=== PATIENT | male | born 1945 | race Caucasian/White ===

== ENCOUNTER 2025-06-21 09:22 | Observation (INO) | payer OTHER, SELFPAY ==
[2025-06-21] VITALS (19 sets, daily range): BP systolic 157–195; BP diastolic 70–97; PULSE 71–85; RESP 16–18; TEMP 36–36.6; O2SAT 95–99
--- NOTE | 2025-06-21 10:00 | DI.MRI_ITS ---
Exam(s) MR LUMBAR SPINE WO EXAM: MR LUMBAR SPINE WO CLINICAL HISTORY: Low back pain urinary frequency. TECHNIQUE: Multiplanar multisequence MRI of the Lumbar spine was performed. COMPARISON: CR ABD FLAT UPRIGHT PA CHEST from 07/13/2009 FINDINGS: Bones: The last intervertebral disc space is designated the L5/S1 level for the numbering purpose of this examination. Alignment: Unremarkable. There is a moderate compression of the superior endplate of T12 with slight retropulsion. This appears old. There is slight compression and discrete for fracture line seen in the superior endplate of L1 which is acute or subacute. No retropulsion. There is patchy marrow signal with significant fatty replacement of the bone marrow, particularly in the level of L5 and the pelvis. There is a 19 x 12 millimeter low signal lesion in the left ilium. No additional lesions are identified. Cord: The conus tip ends at the T12 level. It is of normal size and signal intensity. T12-L1: No focal disc herniation is present. No central spinal canal stenosis.No neural foraminal stenosis. L1-2: No focal disc herniation is present. No central spinal canal stenosis.No neural foraminal stenosis. L2-3:Small endplate osteophytes and disc bulging eccentric toward the right. Mild bilateral neural foraminal narrowing. No focal disc herniation is present. Mild central spinal canal stenosis. L3-4: Small endplate osteophytes and mild disc bulging. Facet degenerative changes and ligamentous hypertrophy combine to produce moderate central canal stenosis and mild left neural foraminal narrowing.No focal disc herniation is present. L4-5: Postsurgical changes of apparent disc fusion. No central spinal canal stenosis.No neural foraminal stenosis. L5-S1: Postsurgical changes with fusion across the disc. Small endplate osteophytes.. No central spinal canal stenosis.No neural foraminal stenosis. The visualized SI joints and sacrum are unremarkable. Soft tissues: The paraspinal soft tissues are unremarkable. IMPRESSION: Acute or subacute mild compression fracture of the superior endplate of L1. Old moderate compression fracture of T12. Mild central canal stenosis at L2-3. Moderate central canal stenosis at L3-4 secondary to combination of degenerative changes. Postsurgical changes at L4-5 and L5-S1. Low signal lesion in the left ilium correlation with clinical history recommended. Findings could represent metastatic disease. Findings called to Mahnaz Bansal of the emergency department. DATA REPOSITORY:
--- NOTE | 2025-06-21 10:05 | DI.MRI_ITS ---
Exam(s) MR THORACIC SPINE WO EXAM: MR THORACIC SPINE WO CLINICAL HISTORY: Low back pain urinary frequency abnormal x-ray. TECHNIQUE: Multiplanar multisequence MRI of the Thoracic spine was performed. COMPARISON: MR MR LUMBAR SPINE WO from 06/21/2025 FINDINGS: Bones: There is a moderate compression fracture of the superior endplate of T12 which appears old. There is mild retropulsion of the superior endplate but no significant central canal stenosis. There is acute or sub acute minimal compression of the L1 vertebral body. The remaining vertebral body heights are well maintained. Alignment is satisfactory. The marrow signal is mottled. No suspicious focal lesions. Cord: The thoracic cord is normal size and signal intensity. No cord edema, thickening or masses. There is slight dilatation of the central canal, less than 2 millimeters, at the level of T7-8 extending along a length of 17 millimeters. There is also slight dilatation of the central canal, [address], at the level of T12. Soft tissues: Normal. Discs: Endplate osteophytes. No disc bulging or focal disc herniation. IMPRESSION: Old moderate compression fracture of T12. Acute or subacute mild compression of L1 vertebral body. Slight dilatation of the central canal of the spinal cord at the T7-8 level and at the level of T12. The findings could be related to previous trauma. Findings were called to Dr. Lozano of the emergency department. DATA REPOSITORY:
--- NOTE | 2025-06-21 10:10 | W.ED.GENAD ---
Discharge Plan Disposition Patient Disposition: Admit to [facility] Discharge Details Clinical Impression: Compression fx, lumbar spine Primary Care Provider: [facility] ED Provider: Scot Lozano Home Meds and New Rx's Prescriptions: No Action amlodipine 2.5 MG tablet 2.5 mg PO DAILY finasteride 5 MG tablet 5 mg PO DAILY oxycodone-acetaminophen 1 TAB tablet 1 - 2 tab PO Q6H PRN PRNQty: 10 0RF lidocaine [Lidoderm] 5 % adhesive patch,medicated See Rx Instructions .ROUTE .COMPLEX Rx Instructions: leave on most painful area for up to 12 hrs HPI General Date/Time Provider Initiated Documentation: 06/21/25 09:48. HPI Narrative: MDM This is an uncomfortable appearing normothermic and not tachycardic 80-year-old male with acute low back pain and abnormal x-rays with urinary frequency concerning for the possibility of cord compression for which patient will undergo MRI. No pain out of proportion to suggest necrotizing soft tissue infection. Patient is not anticoagulated to suggest increased risk for spinal epidural hematoma. No fevers to suggest spinal epidural abscess and no history of IV drug use. Cauda equina certainly on the differential given urinary frequency though patient has no saddle anesthesia. Soft nontender abdomen so I am not suspicious for appendicitis nor diverticulitis. No chest pain to suggest ACS. No rash to back to suggest zoster. Will treat with morphine and reassess. Bilateral feet warm well-perfused so I am no concerned for critical limb ischemia as I do not feel the patient requires a CT angiogram of his abdomen with runoffs. Patient will likely require physical therapy evaluation with possibility of hospitalization. 11 AM CBC lacks anemia thrombocytopenia leukocytosis. 12:[address] scan showed acute or subacute mild lumbar compression fracture. Will obtain AP and lateral films. Radiology also advised lesion in the left ilium concerning for possibility of metastatic disease may the patient and his aware. 1:58 PM Chemistry showing normal renal function. Mild anion gap. Mild hypercalcemia. Mild hyperglycemia but normal bicarbonate. Physical therapy worked with the patient. He was having difficulty mobilizing. Given that he is requiring assistance with activities of daily living and has required multiple IV doses of narcotics will reach out to the hospitalist with request for hospitalization. 201 p.m. I was in touch with Dr. Jesus from the hospitalist team who graciously agreed to accept the patient for hospitalization. HPI This is a patient with a history of sciatic nerve issues and significant degenerative disk disease presenting with back pain. The patient experienced back pain after lifting a heavy object on the evening of 06/17/2025, which was exacerbated when he knelt down to push it over. He reports no recent falls or injuries. The pain is located in the center of his lower back. He reports no abdominal pain, nausea, or vomiting. He has experienced similar episodes in the past, but they usually resolve within a few days. He describes a sensation of his lower half being unable to support him at times, making it difficult for him to walk. He reports no numbness or tingling in his legs. He has not lost control of his bowels or bladder, but notes an increased need to urinate, even though he has not been drinking excessively. He reports no fever. He feels that his legs are functioning normally, but his lower back does not provide adequate support. He was seen at the [facility] where x-rays revealed an old compression fracture at T12 and a possible new one at L1, along with significant degenerative disk disease. He was prescribed oxycodone 25 mg every 8 hours and lidocaine patches, and was advised to use a walker. The ER suggested an MRI and recommended that he return if the pain worsened. However, his primary care physician is currently unavailable. His blood pressure is elevated due to the pain, in spite of being on antihypertensive medication. PAST SURGICAL HISTORY: The patient underwent surgery for sciatic nerve issues approximately 40 years ago, during which 75% of two disks were removed. Exam General: Well-appearing in no acute distress speaking in complete sentences. Head: Normocephalic, atraumatic. Eye: Extraocular eye movements intact. No conjunctival injection. No scleral icterus. Ear, nose, mouth, throat: Grossly normal inspection. Normal voice, handling secretions normally. Neck: Trachea midline. No midline cervical spinal tenderness. Cardiovascular: Well-perfused distal extremities. Regular rate and rhythm Respiratory: Nonlabored respiration. Clear lungs bilaterally Gastrointestinal: Nondistended abdomen. Soft nontender. Back: Midline lumbar spinal tenderness. No step-offs. No deformities. No thoracic tenderness. No rash to back. Well-healed midline lumbar incision. Musculoskeletal: No edema. Intact PT pulses bilaterally. Warm well-perfused feet. Moving all 4 extremities spontaneously. 5 out of 5 bilateral lower extremity strength on dorsi and plantarflexion. No clonus. Sensation intact in bilateral lower extremities. Skin: Normal for age and race, grossly normal temperature and turgor. No acute rash. Neurologic: Alert and appropriate, no apparent acute deficits. Psychiatric: Mood and manner are appropriate. Grooming and personal hygiene are appropriate. Related Data Home Medications ?Medication ?Instructions ?Recorded ?Confirmed oxycodone-acetaminophen 5 mg-325 1 - 2 tab PO Q6H PRN PRN #10 tabs 06/09/17 06/21/25 mg tablet amlodipine 2.5 mg tablet 2.5 mg PO DAILY 06/18/17 06/21/25 finasteride 5 mg tablet 5 mg PO DAILY 06/18/17 06/21/25 lidocaine 5 % topical patch See Rx Instructions topical 06/21/25 06/21/25 (Lidoderm) .COMPLEX Previous Rx's ?Medication ?Instructions ?Recorded oxycodone-acetaminophen 5 mg-325 1 - 2 tab PO Q6H PRN PRN #10 tabs 06/09/17 mg tablet Allergies Allergy/AdvReac Type Severity Reaction Status Date / Time bee venom protein (honey bee) Allergy Severe Anaphylaxsi Unverified 06/21/25 10:10 s General Stated Complaint: Nk/Back Pain SERAFIN: 3 Course Vital Signs Vital signs: Vital Signs Temperature 36.6 C 06/21/25 09:29 Pulse 85 06/21/25 09:29 Respiratory Rate 18 06/21/25 09:29 Blood Pressure 195/84 H 06/21/25 09:29 Pulse Oximetry 98 06/21/25 09:29 Temperature 36.6 C 06/21/25 09:29 Pulse 85 06/21/25 09:29 Respiratory Rate 18 06/21/25 09:29 Blood Pressure 195/84 H 06/21/25 09:29 Pulse Oximetry 98 06/21/25 09:29 PFSH All Active Problems (Updated 06/21/25 @ 14:02 by Scot Lozano MD) Compression fx, lumbar spine (Acute) Social History Smoking/Tobacco Use Status: Former Tobacco Use Smoking risk assessment performed?: Yes Drug use: Never Substance use type: does not use Do you feel safe in your relationship?: Yes
[2025-06-21] MEDS: MORPHine 4 MG/ML SYR IVP ×2 (10:28→12:51)
[2025-06-21 10:37] LABS: Abs Immature Grans 0.03 10^3/uL (0.0-0.06); HCT 42.7 % (40.0-50.0); HGB 14.5 g/dL (13.5-17.5); Immature Grans % 0.4 %; MCH 31.8 pg (27.0-33.0); MCHC 34.0 % (32.0-36.0); MCV 94 fL (80-95); MPV 9.2 fL (8.0-11.0); Platelet Count 317 10^3/uL (130-400); RBC 4.56 10^6/uL (4.36-5.78); RDW 12.6 % (11.8-14.1); RDW-SD 43.5 fL; WBC 8.24 10^3/uL (4.4-10.8)
[2025-06-21 11:39] LABS: Anion Gap 11.9 mmol/L (3-11); BUN 21 mg/dL (7-18); CO2 23.1 mmol/L (21.0-32.0); Calcium 10.3 mg/dL (8.5-10.1); Chloride 103 mmol/L (98-107); Estimated GFR 55.88 (mL/min/1.73m2); Glucose 132 mg/dL (74-106); Potassium 4.4 mmol/L (3.5-5.1); Sodium 138 mmol/L (136-145)
--- NOTE | 2025-06-21 12:45 | DI.RAD_ITS ---
Exam(s) XR LUMBAR SPINE AP, LAT EXAM: XR LUMBAR SPINE AP, LAT CLINICAL HISTORY: lumbar XR fx. TECHNIQUE: 2D digital imaging was performed. Five views. COMPARISON: MR MR LUMBAR SPINE WO from 06/21/2025 FINDINGS: BONES: There is a moderate compression fracture of the superior endplate T12. There is also a compression fracture of the superior endplate of L1. There remaining vertebral body heights are maintained. DISKS: Postsurgical changes at the L4-5 and L5-S1 discs. Prominent endplate osteophytes. The more superior intervertebral disc spaces are maintained. ALIGNMENT: Lumbar spinal alignment is within normal limits. SOFT TISSUE: Calcification in the abdominal aorta. Right upper quadrant surgical clips. IMPRESSION: T12 and L1 compression fractures. DATA REPOSITORY: RADIATION DOSE DELIVERED:
[2025-06-21] MEDS: Acetaminophen 500 MG TAB 1000 MG PO (12:59)
--- NOTE | 2025-06-21 13:55 | IN_ITS ---
Date of service: 06/21/25 Time of Service: 13:25 PT Emergency Department Note Patient Location: Emergency Room Referring Provider: Scot Lozano MD PT Diagnosis: Decreased mobility s/p T12, L1 compression fractures Diagnosis: T12, L1 compression fractures Date of Service: June 21, 2025 09:22 Emergency Room Physical Therapy Evaluation Certification Period:? From __06/21/25 ?? Through _07/21/25 I certify the need for these services as being medically necessary and skilled as furnished under this plan of treatment while under my care. Please sign and return within 14 days if you agree with the plan of care listed below.? Thank you for this referral! ? Referring Physician? Date Precautions: no bending forwards, heavy lifting, or twisting Patient Profile/Admitting Diagnosis:? The patient is a 80 yo male who came to the ED 06/21/25 for low back pain. The patient experienced back pain after lifting a heavy object on the evening of 06/17/2025, which was exacerbated when he knelt down to push it over. He reports no recent falls or injuries. The pain is located in the center of his lower back. He reports no abdominal pain, nausea, or vomiting. He has experienced similar episodes in the past, but they usually resolve within a few days. He describes a sensation of his lower half being unable to support him at times, making it difficult for him to walk. He reports no numbness or tingling in his legs. He has not lost control of his bowels or bladder, but notes an increased need to urinate, even though he has not been drinking excessively. He reports no fever. He feels that his legs are functioning normally, but his lower back does not provide adequate support. He was seen at the [facility] where x-rays revealed an old compression fracture at T12 and a possible new one at L1, along with significant degenerative disk disease. He was prescribed oxycodone 25 mg every 8 hours and lidocaine patches, and was advised to use a walker. The ER suggested an MRI and recommended that he return if the pain worsened. MRI of spine 06/21/25: FINDINGS: Bones: The last intervertebral disc space is designated the L5/S1 level for the numbering purpose of this examination. Alignment: Unremarkable. There is a moderate compression of the superior endplate of T12 with slight retropulsion. This appears old. There is slight compression and discrete for fracture line seen in the superior endplate of L1 which is acute or subacute. No retropulsion. There is patchy marrow signal with significant fatty replacement of the bone marrow, particularly in the level of L5 and the pelvis. There is a 19 x 12 millimeter low signal lesion in the left ilium. No additional lesions are identified. Cord: The conus tip ends at the T12 level. It is of normal size and signal intensity. T12-L1: No focal disc herniation is present. No central spinal canal stenosis.No neural foraminal stenosis. L1-2: No focal disc herniation is present. No central spinal canal stenosis.No neural foraminal stenosis. L2-3:Small endplate osteophytes and disc bulging eccentric toward the right. Mild bilateral neural foraminal narrowing. No focal disc herniation is present. Mild central spinal canal stenosis. L3-4: Small endplate osteophytes and mild disc bulging. Facet degenerative changes and ligamentous hypertrophy combine to produce moderate central canal stenosis and mild left neural foraminal narrowing.No focal disc herniation is present. L4-5: Postsurgical changes of apparent disc fusion. No central spinal canal stenosis.No neural foraminal stenosis. L5-S1: Postsurgical changes with fusion across the disc. Small endplate osteophytes.. No central spinal canal stenosis.No neural foraminal stenosis. The visualized SI joints and sacrum are unremarkable. Soft tissues: The paraspinal soft tissues are unremarkable. IMPRESSION: Acute or subacute mild compression fracture of the superior endplate of L1. Old moderate compression fracture of T12. Mild central canal stenosis at L2-3. Moderate central canal stenosis at L3-4 secondary to combination of degenerative changes. Postsurgical changes at L4-5 and L5-S1. Low signal lesion in the left ilium correlation with clinical history recommended. Findings could represent metastatic disease. Past Medical History: no PMH in ED note. h/o low back disc surgery. Medications: See chart Social History/Home Situation: Lives with his in [place]. 2 level home. Bedroom upstairs. Tried sleeping on the couch or his recliner. Normally active with mowing, tasks around the house, drives. Subjective: I cannot even move without that medicine. (morphine) Objective: Sitting in w/c upon arrival. Spoke with Dr. Lozano prior to seeing patient. Deemed fracture as stable, did not need a brace. Did recommend limit bending, twisting and lifting. Spoke with Dr. Lozano after seeing the patient and recommended trying abdominal binder for comfort and lidocaine topically or patch for pain (helped him while he was at home) Mental Status: Patient is alert and oriented. Pain: Pain 2-3/10 at rest up to 6/10 with deep breathing. Pain is in low back, not over the fracture sites. Dr. Joe is aware.Patient reports this is with the morphine currently assisting with his pain. Pain was not managed at home with P.O. oxycodone. Vital Signs: Spoke with Dr. Lozano about elevated BP this morning 195/84 secondary to pain and felt a PT evaluation was still appropriate. ROM/Strength: Upper extremities: grossly WFL Lower extremities: grossly 4+/5 with c/o pain Sensation: Reports no new numbness/tingling Soft tissue/edema: no gross abnormalities observed. Bed Mobility: Patient declined performance secondary to pain and difficulty when performing MRI earlier today even with morphine. Transfers: Sit to stand with cg/min assist 2x. stand to sit with cg/min assist 2x. Gait: Ambulated 5 feet with walker with flexion with very minimal step length with c/o pain. CGA secondary to concerns for potential sudden onset of pain. Balance: SLS not tested secondary to pain. CGA/min assist fo all upright activity. [facility] AM-PAC 6 clicks Basic Mobility Inpatient Short Form: Raw Score:?14? CMS Score: 61.29% disability Informed Consent/Education:? Patient instructed in purpose of PT consult and plan of care and is agreeable Assessment:? Patient is a? 80 year old male who came to the ED for back pain which increased since his previous ED visit with T12 and L1 compression fractures, including mild retropulsion at T12.? Patient presents with pain, decreased strength, decreased functional mobility, decreased balance and difficulty with ambulation. The patient would benefit from skilled inpatient services to improve these impairments to maximize function and safety. Patient is assessed as:? Low 60167?? History: duration of symptoms Examination: see above Presentation: Stable and uncomplicated? Decision Making:? Low (0 history, 1-2 exam, stable/predictable, easy 20) Physical Therapy Goals: 3 days Able to get in/out of bed with supervision only. Able to perform sit to/from stand with supervision only. Able to 100 walk feet with rolling walker with supervision only. Able to go up and down 2-3 steps with 1 rail with contact guard assist only. Independent with home exercise program Plan of Care/Treatment Plan: 1-2x/day, 7 days/week x 1 week. Plan of care has been reviewed with the PROCESS IMPROVEMENT SPECIALIST providing the service under Physical Therapy direction. Initiate Physical Therapy intervention for strengthening, bed mobility, transfers, gait, stairs, balance training, use of assistive device. DISCHARGE RECOMMENDATIONS: Home with HHPT Informed consent Prior to the start and throughout the course of the examination and treatment, patient was made aware of the specifics and purpose of the physical assessment and treatment procedures. Appropriate draping procedures were utilized to protect modesty where applicable. Billing Charges: Treatment Units Time Duration Manual Therapy(90306) Hands-on techniques to modulate pain increase joint rang e of motion reduce or eliminate soft tissue swelling, inflammation, or restriction facilitate relaxation and improve contractile and non-contractile tissue extensibility ? ? Therapeutic Procedures (60756) Instruction in therapeutic exercises to develop strength and endurance, range of motion and flexibility. HEP instruction and review: Provided skilled instruction in proper exercise performance: Provided skilled manual cues to facilitate proper muscle recruitment and/or movement pattern Neurological Re-Education(90684) To improve balance, coordination, kinesthetic and proprioceptive sensations. ? ? Ultrasound(19740) To promote healing. ? ? Gait Training(50284) ? ? Therapeutic Activity(92330) Instruction in dynamic activities with one on one patient contact by the provider to improve functional performance as follows: ?1 9 ? Self Care Training(00593) ? ? E-Stim (Attended)(78925) ? ? Low IE(16338) 1 17 Mod IE(24650) ? ? High IE(02243) ? ? Time Coded Treatment Time ? 9 Total Treatment Time ? 26
[2025-06-21] MEDS: Lidocaine 5% Patch 1 PATCH TP (14:16)
[2025-06-21] MEDS: Ketorolac 15 MG/ML VIAL IVP ×2 (16:53→23:35)
--- NOTE | 2025-06-21 16:55 | W.PC.ACHO ---
Registration Status: REG ER Primary Language: Preferred Language: Croatian ED Information & Data Chief Complaint Nk/Back Pain 06/21/25 10:10 Triage Note Patient complaining of lower 06/21/25 09:29 back pain after lifting a bale of hay for 4 days. Pt was seen at [facility] ED. Xrays taken Most Recent Vital Signs Temperature 36.6 C 06/21/25 09:29 Pulse 73 06/21/25 14:16 Pulse 73 06/21/25 13:50 Respiratory Rate 16 06/21/25 14:16 Blood Pressure 157/70 H 06/21/25 14:16 Blood Pressure Mean 99 06/21/25 14:16 Pulse Oximetry 96 06/21/25 14:16 Oxygen Delivery Method Room Air 06/21/25 14:16 Oxygen Flow Rate 0 06/21/25 14:16 Pain Level 7 06/21/25 14:16 Allergies bee venom protein (honey bee) Allergy (Severe, Unverified 06/21/25 10:10) Anaphylaxsis Carries an epi pen. Precautions Isolation Standard precaution 06/21/25 09:33 IV IV Catheter Type [Left Peripheral IV Antecubital] IV Catheter Gauge [Left 18 Antecubital] Diagnostics 06/21/25 06/21/25 Range/Units 12:42 10:31 WBC 8.24 (4.4-10.8) 10^3/uL RBC 4.56 (4.36-5.78) 10^6/uL Hgb 14.5 (13.5-17.5) g/dL Hct 42.7 (40.0-50.0) % MCV 94 (80-95) fL MCH 31.8 (27.0-33.0) pg MCHC 34.0 (32.0-36.0) % RDW 12.6 (11.8-14.1) % Plt Count 317 (130-400) 10^3/uL MPV 9.2 (8.0-11.0) fL Immature Gran % 0.4 % Neutrophils % 65.3 % Lymphocytes % 20.0 % Monocytes % 9.6 % Eosinophils % 4.1 % Basophils % 0.6 % Nucleated RBC % 0.0 (0.0-0.3) % Absolute Neutrophils 5.38 (1.2-6.7) 10^3/uL Absolute Lymphocytes 1.65 (1.2-3.4) 10^3/uL Absolute Monocytes 0.79 (0.1-0.8) 10^3/uL Absolute Eosinophils 0.34 (0.0-0.7) 10^3/uL Absolute Basophils 0.05 (0.0-0.2) 10^3/uL Sodium 138 (136-145) mmol/L Potassium 4.4 (3.5-5.1) mmol/L Chloride 103 (98-107) mmol/L Carbon Dioxide 23.1 (21.0-32.0) mmol/L Anion Gap 11.9 H (3-11) mmol/L BUN 21 H (7-18) mg/dL Creatinine 1.3 (0.70-1.30) mg/dL Est GFR (CKD-EPI 2020) 55.88 (mL/min/1.73m2) Glucose 132 H (74-106) mg/dL Calcium 10.3 H (8.5-10.1) mg/dL Urine Color Pending Urine Clarity Pending Urine pH Pending Ur Specific [place] Pending Urine Protein Pending Urine Ketones Pending Urine Blood Pending Urine Nitrite Pending Urine Bilirubin Pending Urine Urobilinogen Pending Ur Leukocyte Esterase Pending Urine Glucose Pending Intake and Output - 24 Hour Total 06/21/25 09:22 thru 06/21/25 09:29 Weight 90.718 kg Falls Risk Assessment History of Falls No History 06/21/25 10:09 Contributing Factors No Factors 06/21/25 10:09 Ambulatory Aids Independent 06/21/25 10:09 Tubes/Lines None 06/21/25 10:09 Gait Evaluation No gait disturbance 06/21/25 10:09 Cognition No cognitive impairment 06/21/25 10:09 Fall Total Score 0 06/21/25 10:09 Level of Risk Standard/Low Risk 06/21/25 10:09 v v v v v v v v v Sending and/or Receiving Nurses: Please use comment section below to note any information pertinent to the patient hand-off not included above. Information / Comments: Pt alert, oriented 80 year old male who injured back by picking up and twisting a bale of hay. Pt with pain that is impacting ambulation, will be admitted for acute compression fx of L1, received pain meds prior to w/c transport to floor. Pt admitted to floor at Report received from: Gely RN at 1641, called at 1520 for report but ED [facility].
--- NOTE | 2025-06-21 17:20 | HPE_ITS ---
Date of service: 06/21/25 Time of Service: 17:21 Assessment and Plan Assessment and plan (1) Compression fx, lumbar spine: Status: Acute Assessment and plan: 80-year-old male with known degenerative disk disease presenting with acute lumbar compression fracture and difficulty ambulating. CT scan confirms acute/subacute compression fracture with possible left iliac lesion concerning for metastasis. Labs: no anemia, mild hypercalcemia, mild hyperglycemia, otherwise unremarkable. Patient requires hospitalization for pain management, PT/OT, and further evaluation of possible metastatic disease. * Pain management: continue IV narcotics PRN, transition to PO as tolerated * PT/OT evaluation and mobility assistance * MRI lumbar spine to further assess cord compression * Arrange out patient oncology consult as indicated for left iliac lesion * Monitor calcium, renal function, glucose * Continue home medications (amlodipine, finasteride) * Resume lidocaine patches * Bowel regimen as needed while on narcotics History of Present Illness History of Present Illness Chief Complaint: Low back pain Narrative: 80-year-old male with history of sciatic nerve surgery and degenerative disk disease presents with acute low back pain after lifting a heavy object on 06/17/25. Pain worsened with kneeling and has persisted. He reports difficulty walking due to a sensation that his lower back cannot support him. Denies trauma, numbness, tingling, bowel/bladder incontinence, or saddle anesthesia. Reports increased urinary frequency but no fever, nausea, vomiting, chest pain, or abdominal pain. Seen previously at [facility] where x-ray showed old T12 compression fracture and possible new L1 fracture; prescribed oxycodone and lidocaine patches, advised to use a walker. Pain uncontrolled, difficulty mobilizing, and requiring multiple IV narcotic doses in ED. Patient requires hospitalization for pain management, PT/OT, and further evaluation of possible metastatic disease. Patient agrees with plan of care. Patient is a full code. Review of Systems Narrative: General: No fever, chills, or weight loss. Neuro: No weakness, numbness, or tingling in legs. No bowel/bladder incontinence. Reports urinary frequency. GI: No abdominal pain, nausea, or vomiting. Cardiac/Resp: No chest pain, palpitations, dyspnea, or cough. MSK: Severe midline low back pain, difficulty ambulating. Skin: No rash. PFSH All Active Problems (Updated 06/21/25 @ 14:02 by Scot Lozano MD) Compression fx, lumbar spine (Acute) Social History Smoking/Tobacco Use Status: Former Tobacco Use Smoking risk assessment performed?: Yes Drug use: Never Substance use type: does not use Do you feel safe in your relationship?: Yes Meds Allergies and Home Medications Allergies Allergy/AdvReac Type Severity Reaction Status Date / Time bee venom protein (honey bee) Allergy Severe Anaphylaxsi Unverified 06/21/25 10:10 s Home Medications ?Medication ?Instructions ?Recorded ?Confirmed ?Type oxycodone-acetaminophen 5 mg-325 1 - 2 tab PO Q6H PRN PRN #10 tabs 06/09/17 06/21/25 Rx mg tablet amlodipine 2.5 mg tablet 2.5 mg PO DAILY 06/18/17 History finasteride 5 mg tablet 5 mg PO DAILY 06/18/1706/21 History lidocaine 5 % topical patch See Rx Instructions topica l 06/21/25 06/21/25 History (Lidoderm) .COMPLEX Exam Narrative Exam Narrative: * General: Well-appearing, no acute distress, conversant. * HEENT: Normocephalic, atraumatic. EOMI. No scleral icterus. * Neck: Trachea midline, no cervical tenderness. * CV: Regular rate and rhythm, distal pulses intact, extremities well-perfused. * Resp: Nonlabored respirations, lungs clear bilaterally. * GI: Abdomen soft, nondistended, nontender. * Back: Midline lumbar tenderness. No step-offs, deformities, or rash. Healed midline lumbar incision. * MSK: No edema. Lower extremities with 5/5 strength, intact sensation, normal pulses. No clonus. * Skin: Normal turgor, no rash. * Neuro: Alert, oriented, no acute deficits. * Psych: Appropriate mood/affect, grooming normal. Results Labs 06/21/25 10:31 06/21/25 10:31 Labs: Laboratory Results - last 24 hr 06/21/25 10:31 WBC 8.24 RBC 4.56 Hgb 14.5 Hct 42.7 MCV 94 MCH 31.8 MCHC 34.0 RDW 12.6 Plt Count 317 MPV 9.2 Immature Gran % 0.4 Neutrophils % 65.3 Lymphocytes % 20.0 Monocytes % 9.6 Eosinophils % 4.1 Basophils % 0.6 Nucleated RBC % 0.0 Absolute Neutrophils 5.38 Absolute Lymphocytes 1.65 Absolute Monocytes 0.79 Absolute Eosinophils 0.34 Absolute Basophils 0.05 Sodium 138 Potassium 4.4 Chloride 103 Carbon Dioxide 23.1 Anion Gap 11.9 H BUN 21 H Creatinine 1.3 Est GFR (CKD-EPI 2020) 55.88 Glucose 132 H Calcium 10.3 H Last Vital Signs Temp 36.6 C 06/21/25 09:29 Pulse 73 06/21/25 14:16 Resp 16 06/21/25 14:16 BP 157/70 H 06/21/25 14:16 Pulse Ox 96 06/21/25 14:16 Time Spent Time spent with Patient: 40-54 minutes Time was spent: preparing to see the patient(eg.review tests), obtaining and/or reviewing separately otained hiistory, ordering medications,tests, procedures, referring, communicating with other health rn complex care, indepentently interpreting results, counseling the patient and care coordination
[2025-06-21] MEDS: Acetaminophen 325 MG TAB 650 MG PO ×2 (17:54→22:11)
[2025-06-21] MEDS: HYDROmorphone 2 MG/ML SYR 0.5 MG IVP (17:54)
[2025-06-21] MEDS: Milk of Magnesia 30 ML CUP PO (18:15)
[2025-06-21] MEDS: Polyethylene Glycol 3350 17 GM PACKET PO (18:15)
[2025-06-22] MEDS: Acetaminophen 325 MG TAB 650 MG PO ×2 (03:06→07:51)
[2025-06-22 03:18] VITALS: BP 166/91; RESP 16; TEMP 36.6; O2SAT 98
[2025-06-22] MEDS: Ketorolac 15 MG/ML VIAL IVP (06:35)
[2025-06-22 06:54] LABS: Abs Immature Grans 0.01 10^3/uL (0.0-0.06); HCT 41.7 % (40.0-50.0); HGB 14.3 g/dL (13.5-17.5); Immature Grans % 0.1 %; MCH 32.5 pg (27.0-33.0); MCHC 34.3 % (32.0-36.0); MCV 95 fL (80-95); MPV 9.8 fL (8.0-11.0); Platelet Count 311 10^3/uL (130-400); RBC 4.40 10^6/uL (4.36-5.78); RDW 12.6 % (11.8-14.1); RDW-SD 43.8 fL; WBC 8.47 10^3/uL (4.4-10.8)
[2025-06-22 07:11] LABS: Anion Gap 8.9 mmol/L (3-11); BUN 26 mg/dL (7-18); C-Reactive Protein 1.27 mg/dL (<or=0.5); CO2 27.1 mmol/L (21.0-32.0); Calcium 9.8 mg/dL (8.5-10.1); Chloride 102 mmol/L (98-107); Estimated GFR 51.13 (mL/min/1.73m2); Glucose 123 mg/dL (74-106); Magnesium 2.3 mg/dL (1.8-2.4); Potassium 4.9 mmol/L (3.5-5.1); Sodium 138 mmol/L (136-145)
[2025-06-22 07:37] VITALS: BP 178/91; PULSE 86; RESP 16; TEMP 36.4; O2SAT 95
[2025-06-22] MEDS: amLODIPine 2.5 MG TAB PO ×2 (07:50→12:12)
[2025-06-22] MEDS: Enoxaparin 40 MG/0.4 ML SYR SC (07:51)
[2025-06-22] MEDS: Finasteride 5 MG TAB PO (07:51)
[2025-06-22 08:43] LABS: Glucose Negative (Negative)
--- NOTE | 2025-06-22 09:50 | PDOC.CMIN ---
Date of service: 06/22/25 Time of Service: 09:51 Care Management Initial Assmt Initial Assessment Reason for Hospitalization: Compression fx.lumbar spine Functional Status/Living Situation Patient Presentation: Christiano was sitting up in bed and visiting with his [place]. Christiano presented to the ED yesterday afternoon as he experienced back pain after lifting a heavy object on the evening of 06/17/2025, which was exacerbated when he knelt down to push it over; see documentation. Town of Residence: [place] Resides with: Spouse Significant Other/Family: [facility] Instrumental Activities of Daily Living (ADLs): Independent Medications Medication Management: No Issues/Barriers identified Advance Directives Advance Directives: Do you have an Advance Directive: N 06/18/17, 09:51 AD On File at [facility]: N 06/18/17, 09:51 Date Asked 06/21/25 06/21/25, :26 AD Date Reviewed COLST On File at [facility] COLST Date Scanned Code Status Resuscitation Status Full Code Portal Pt does not currently have a portal and education provided: Yes Insurance Coverage/Financial Issues Insurance: [facility] [id number] Care Team Visit Care Team Role Provider Type Karolyn Fountain NP MD [facility] STAFF PHYSICIAN Primary Care Provider REPORT RECIPIENT InPatient [facility] Other Providers OTHER Scot Lozano MD Emergency Provider [facility] STAFF PHYSICIAN Justin Jesus MD Admit Provider [facility] STAFF PHYSICIAN Attending Provider Discharge Potential Discharge Needs: PCP F/U Appt Anticipated Barriers to Discharge: None Identified Patient/Family Education Needs: Review discharge instructions, discuss Ask Me Three Transportation: Private vehicle Plan: Anticipate Christiano will be discharged home once medically ready with new PT; pt agreeable to this. It is recommended he will follow up with his community providers and discharge plan of care. He will transport home via private vehicle by family. CM will continue to follow. Social Determinants of Health Screening Social Determinants of health last assessed in clinic: 06/22/25 Will the Patient Participate in the Screening?: Yes Do you worry about having a steady place to live?: no Problems where you live: no known problems In the past 12 months, have you had to go without electric, gas, oil or water in your home?: no 1. Within the past 12 months, we worried whether our food would run out before we got money to buy more.: Never true 2. Within the past 12 months, the food we bought just didn't last and we didn't have money to get more.: Never true Has lack of transportation kept you from medical appointments or from doing things needed for daily living?: no Has anyone in your life made you feel unsafe or unsupported?: no How hard is it for you to pay for the very basics like food, housing, medical care, and heating? Would you say it is:: Not hard at all Do you want help finding or keeping work or a job?: I do not need or want help If for any reason you need help with day-to-day activities such as bathing, preparing meals, shopping, managing finances, etc., do you get the help you need?: I don?t need any help How often do you feel lonely or isolated from those around you?: Never Do you speak a language other than Vietnamese at home?: No Does the patient want assistance with any of the above?: No PFSH All Active Problems (Updated 06/21/25 @ 14:02 by Scot Lozano MD) Compression fx, lumbar spine (Acute) Social History Smoking/Tobacco Use Status: Former Tobacco Use Smoking risk assessment performed?: Yes Drug use: Never Substance use type: does not use Housing: house Do you feel safe in your relationship?: Yes Readmission Within the Past 30 Days Yes or No: No Anticipated HH Services Anticipated HH Services at Discharge [facility].
[2025-06-22] MEDS: HYDROmorphone 2 MG/ML SYR 0.5 MG IVP (10:15)
[2025-06-22 11:06] VITALS: O2SAT 95
--- NOTE | 2025-06-22 11:07 | CMDISCH_ITS ---
Date of service: 06/22/25 Time of Service: 11:07 LACE Index Scoring Tool Questions: Length of Stay (in days): 1 Was the patient admitted via the E.D.?: Yes E.D. Visits: 1 Answers: Total Score: 5 Risk of Readmission: Low Risk Care Management Discharge Plan Reason for Hospitalization: Compression fx/lumbar spine Discharge Plan: Christiano will be discharged with outpatient PT; PT recommended PT, patient prefers outpatient. It is recommended he will follow up with his community providers and discharge plan of care. [facility] contacted to schedule appointment by med/surg desk; desk will follow. Christiano will be transported via private vehicle by his . Patient/Family Education Needs: Review of discharge instructions, activity, limitation, and plan of care. Discuss ask me three.
[2025-06-22 11:41] VITALS: BP 193/90; PULSE 94; RESP 16; TEMP 36.2; O2SAT 97
--- NOTE | 2025-06-22 11:42 | PTTR_ITS ---
PT Notes Visit Reasons: Compression fx/Lumbar spine Inpatient Physical Therapy Treatment Note [facility] Date: 06/22/2025 PRECAUTIONS: Fall, standard. Patient instructed in modifying activities to include no bending lifting or twisting to reduce pain and back SUBJECTIVE: Patient reports he is waiting for his discharge paperwork. When presented with abdominal binder patient agreeable to try. After donning patient stated he felt supported and reduction in pain. OBJECTIVE: Patient presented fully close semireclined in bed present. ? PAIN: 11/08 back VITALS: ?Monitored by nursing Therapeutic Activities ([id number]): Direct one-on-one instruction in dynamic activities to improve functional performance. ? BED MOBILITY/TRANSFERS? Rolling L/R: independent Supine-sit: independent ? Sit-supine: independent ? Sit-stand: SBA with cues to push up? Stand-sit: SBA cues to reach back? Bed-Chair: SBA with FWW ? Chair-bed: SBA with FWW Provided skilled cues and instruction on performance and technique throughout. GAIT? Assistive Device: FWW? Weight bearing: Full Assist: Supervision? Distance:? 200 ft? Deviation: cues for upright posture and to keep FWW closer to body? STAIRS: 2 6 steps x 5 with 1 rail SBA? Pt fitted for abdominal binder with (+) effect on pain in back. Pt and able to don binder with cues.? ASSESSMENT: Progression with abdominal binder in place with reduction in pain. Patient able to ambulate with FWW supervision 200 feet and perform stairs safely in anticipation of discharge to home. Patient to continue use of abdominal bi nder for comfort PLAN: d/c to home TREATMENT CODE/TIME: [id number] DISCHARGE RECOMMENDATION: Home with HHPT and use of abdominal binder for comfort
--- NOTE | 2025-06-22 12:14 | DSE_ITS ---
Date of service: 06/22/25 Time of Service: 12:15 DS: Diagnosis Discharge Diagnosis (1) Compression fx, lumbar spine: Status: Acute Discharge Plan Disposition Patient Disposition: Home Condition: Improving Discharge Details Reason For Visit: Compression fx/Lumbar spine Admit Date/Time: 06/21/25 14:27 Admit Provider: Justin Jesus Attending Provider: Justin Jesus Primary Care Provider: [facility] Hospital Course Hospital Course: 80-year-old male with a history of degenerative disk disease presented with acute low back pain after lifting a heavy object on 06/17/25. He reported difficulty ambulating, though denied neurological deficits. Imaging revealed a new L1 compression fracture and a left iliac lesion raising concern. He was admitted for pain control, mobility assistance, and further work-up. During hospitalization: * Received IV narcotics for pain, transitioned to oral - patient requested discharge prior to receiving oral pain medication. * Evaluated by PT with recommendation for ongoing therapy. * MRI lumbar spine ordered to evaluate for cord involvement. * [facility] ( [facility]). * Labs showed mild hypercalcemia, mild hyperglycemia, and stable renal function. * No signs of infection or neurologic compromise. Discharge Condition * Stable and improved pain control * Ambulating with assistance * Neurologically intact * Tolerating oral intake * Agrees with discharge plan Discharge Medications Pain Management: * Acetaminophen 650 mg oral every 6 hours as needed for minor pain * Hydromorphone (Dilaudid) 2 mg PO every 6 hours as needed for severe pain * Ketorolac 10 mg PO every 6 hours as needed for moderate pain * Lidocaine 5% topical patch (Lidoderm) ? apply as directed * Oxycodone-acetaminophen 5-325 mg PO every 6 hours as needed ? discontinued at discharge - switching to Dilaudid Chronic Medications: * Amlodipine 5 mg oral daily (increased from 2.5 mg for blood pressure control - sustained hypertension while hospitalized) * Finasteride 5 mg oral daily Supportive Care: * Bowel regimen as needed while on opioids (e.g., docusate, senna) * Encourage hydration Discharge Plan & Follow-Up * [facility]-up with [facility] ? within 1 week of discharge * PT ? Continue outpatient rehab as available through [facility] * No driving until cleared by PCP Patient Instructions * Use walker or assistive device as needed * Avoid lifting, bending, or twisting * Seek immediate care for new weakness, numbness, or bowel/bladder symptoms * Use medications only as directed * Maintain hydration and bowel regularity while on opioids. Miralax, mild of mag, or / and fiber Recommendations for Follow Up Recommended tests to be ordered by follow up provider: MRI LS spine: Low signal lesion in the left ilium correlation with clinical history recommended. Findings could represent metastatic disease. PCP ([facility]) recommendation and possible referral to oncology if warranted. Amlodipine increased to 5 mg daily for continued hypertension - despite pain controlled. Home Meds and New Rx's Prescriptions: New hydromorphone [Dilaudid] 2 mg tablet 2 mg PO Q6H MDD 8 mg PRN (Reason: severe pain (scale score 7-10)) Qty: 20 0RF ketorolac 10 mg tablet 10 mg PO Q6H PRN (Reason: moderate pain (scale score 5-6)) Qty: 20 0RF Rx Instructions: maximum total duration of 5 days from all oral, intranasal, or parenteral formulations amlodipine 2.5 mg Tablet 5 mg PO DAILY Qty: 30 0RF Continued finasteride 5 MG tablet 5 mg PO DAILY lidocaine [Lidoderm] 5 % adhesive patch,medicated See Rx Instructions .ROUTE .COMPLEX Rx Instructions: leave on most painful area for up to 12 hrs Discontinued amlodipine 2.5 MG tablet 2.5 mg PO DAILY oxycodone-acetaminophen 1 TAB tablet 1 - 2 tab PO Q6H PRN PRNQty: 10 0RF Discharge Instructions Instructions: High blood pressure in adults, Ketorolac (Systemic), Vertebral Compression Fracture (DC), Hydromorphone Additional Instructions: Pain Management: * Acetaminophen 650 mg oral every 6 hours as needed for minor pain * Hydromorphone (Dilaudid) 2 mg PO every 6 hours as needed for severe pain * Ketorolac 10 mg PO every 6 hours as needed for moderate pain * Lidocaine 5% topical patch (Lidoderm) ? apply as directed * Oxycodone-acetaminophen 5-325 mg PO every 6 hours as needed ? discontinued at discharge - switching to Dilaudid Chronic Medications: * Amlodipine 5 mg oral daily (increased from 2.5 mg for blood pressure control) * Finasteride 5 mg oral daily Supportive Care: * Bowel regimen as needed while on opioids (e.g., docusate, senna) * Encourage hydration Discharge Plan & Follow-Up * [facility]-up with [facility] ? within 1 week of discharge * Outpatient Oncology for evaluation of possible metastatic lesion ([facility] referral to be [facility]) * PT ? Continue outpatient rehab as available through [facility] Patient Instructions * Use walker or assistive device as needed * Avoid lifting, bending, or twisting * Seek immediate care for new weakness, numbness, or bowel/bladder symptoms * Use medications only as directed * Maintain hydration and bowel regularity while on opioids. Miralax, mild of mag, or / and fiber Referrals: [facility] [Provider Group, Physical Therapy] Referral Note: In patient hospitalization for lumbar spine fracture requiring out patient PT. [facility] [Primary Care Provider, Medicine] Referral Note: 1 week status post hospitalization for pain control related to lumbar compression fracture Activity:: Activity as Tolerated Equipment/Supplies:: No Equipment Needed Diet:: Normal Diet Discharge Orders Discharge Orders: Discharge Order (Routine); Ordered 06/22/25 Ordered By: Karolyn Fountain DS: Summary Time Spent with Patient providing and/or coordinating discharge services: Greater than 30 minutes Status at Discharge Functional status at discharge: independent ambulation Overall status at discharge: patient is progressing back to baseline Mental Status: mental status grossly normal Speech and Movement: speech and movement normal Mood: congruent mood Affect: normal affect Exam Narrative Exam Narrative: * General: Well-appearing, no acute distress, conversant. * HEENT: Normocephalic, atraumatic. EOMI. No scleral icterus. * Neck: Trachea midline, no cervical tenderness. * CV: Regular rate and rhythm, distal pulses intact, extremities well-perfused. * Resp: Nonlabored respirations, lungs clear bilaterally. * GI: Abdomen soft, nondistended, nontender. * Back: Midline lumbar tenderness. No step-offs, deformities, or rash. Healed midline lumbar incision. * MSK: No edema. Lower extremities with 5/5 strength, intact sensation, normal pulses. No clonus. * Skin: Normal turgor, no rash. * Neuro: Alert, oriented, no acute deficits. * Psych: Appropriate mood/affect, grooming normal. Psych Mental Status: mental status grossly normal Speech and Movement: speech and movement normal Mood: congruent mood Affect: normal affect DS: Data Vitals/I&O Vitals and I&O: Vital Signs Temperature 36.2 C L 06/22/25 11:41 Temperature Source Temporal Artery Scan 06/22/25 11:41 Pulse 94 H 06/22/25 11:41 Pulse Rhythm Regular 06/21/25 17:17 Pulse 73 06/21/25 13:50 Respiratory Rate 16 06/22/25 11:41 Respiratory Effort Normal 06/21/25 17:17 Respiratory Depth Normal 06/21/25 17:17 Respiratory Pattern Normal 06/21/25 17:17 Blood Pressure 193/90 H 06/22/25 11:41 Blood Pressure Mean 124 06/22/25 11:41 Pulse Oximetry 97 06/22/25 11:41 Oxygen Delivery Method Room Air 06/22/25 11:41 Oxygen Flow Rate 0 06/22/25 11:41 Pain Level 5 06/22/25 10:19 Intake & Output 06/21/25 06/22/25 06/22/25 23:59 11:59 23:59 Intake Total 480 / 480 480 / 480 Output Total 400 / 400 150 / 150 Balance 80 / 80 330 / 330 Weight 90.6 kg Intake: Oral 480 / 480 480 / 480 Output: Urine 400 / 400 150 / 150 Other: Urine Color Yellow Yellow Urine Appearance Clear Urine Odor None None Stool Size Large Stool Characteristics Soft Formed Data Completed and Pending Labs on day of discharge: Labs from last 24 hours 06/22/25 06/22/25 07:00 06:00 WBC 8.47 RBC 4.40 Hgb 14.3 Hct 41.7 MCV 95 MCH 32.5 MCHC 34.3 RDW 12.6 Plt Count 311 MPV 9.8 Immature Gran % 0.1 Neutrophils % 58.1 Lymphocytes % 23.3 Monocytes % 11.8 Eosinophils % 6.1 Basophils % 0.6 Nucleated RBC % 0.0 Absolute Neutrophils 4.92 Absolute Lymphocytes 1.97 Absolute Monocytes 1.00 H Absolute Eosinophils 0.52 Absolute Basophils 0.05 Sodium 138 Potassium 4.9 Chloride 102 Carbon Dioxide 27.1 Anion Gap 8.9 BUN 26 H Creatinine 1.4 H Est GFR (CKD-EPI 2020) 51.13 Glucose 123 H Calcium 9.8 Magnesium 2.3 C-Reactive Protein 1.27 H Urine Color Yellow Urine Clarity Clear Urine pH 6.0 Ur Specific [place] 1.015 Urine Protein Negative Urine Ketones Trace H Urine Blood Negative Urine Nitrite Negative Urine Bilirubin Negative Urine Urobilinogen 0.2 Ur Leukocyte Esterase Negative Urine Glucose Negative PFSH All Active Problems (Updated 06/21/25 @ 14:02 by Scot Lozano MD) Compression fx, lumbar spine (Acute) Social History Smoking/Tobacco Use Status: Former Tobacco Use Smoking risk assessment performed?: Yes Drug use: Never Substance use type: does not use Housing: house Do you feel safe in your relationship?: Yes Time Spent with Patient Time Spent with Patient: 45-69 minutes Time was spent: preparing to see the patient(eg.review tests), ordering medications,tests, procedures, referring, communicating with other health primary care nurse, indepentently interpreting results, counseling the patient and care coordination
[2025-06-22 12:17] VITALS: BP 184/92; PULSE 96; RESP 18; O2SAT 95
[2025-06-22 13:05] VITALS: BP 154/88; PULSE 96; RESP 18; O2SAT 95
== END 2025-06-22 13:49 | disposition home or self-care (01) ==
LOC: ER 14:45 → MS 17:30
PROVIDERS: Admitting Provider Family Medicine; Emergency Provider Emergency Medicine; Responsible Provider Nurse Practitioner Family; Visit Provider Family Medicine
DX: S32.010A Wedge compression fracture of first lumbar vertebra, initial encounter for closed fracture (principal); M54.50 Low back pain, unspecified; R35.0 Frequency of micturition; X50.0XXA Overexertion from strenuous movement or load, initial encounter; R73.9 Hyperglycemia, unspecified; E83.52 Hypercalcemia; R26.2 Difficulty in walking, not elsewhere classified; M51.35 Other intervertebral disc degeneration, thoracolumbar region; R93.7 Abnormal findings on diagnostic imaging of other parts of musculoskeletal system
CPT/HCPCS: 00123; 36415; 80048; 96372; 96374; 96375; 96376; 97161; 97530; 99285; J1650; 72100; 72146; 72148; 81003; 83735; 85025; 86140; 99222; 99239; G0378; J1171; J1885; J2270